=== PATIENT | female | born 1945 | race Caucasian/White ===

== ENCOUNTER 2019-06-07 11:20 | Emergency (ER) | payer MEDICARE, SELFPAY | END 2019-06-07 12:06 | disposition home or self-care (01) | PROVIDERS: Emergency Provider Emergency Medicine; Family Provider Nurse Practitioner Family; Visit Provider Emergency Medicine | DX: R20.2 Paresthesia of skin (principal); I10 Essential (primary) hypertension | CPT/HCPCS: 73562; 99281 ==

== ENCOUNTER → 2019-08-17 08:25 | Outpatient (BNVA) | payer MEDICARE, MEDICAID, SELFPAY | PROVIDERS: Family Provider Nurse Practitioner Family; PCP Nurse Practitioner Family; Referring Provider Nurse Practitioner Family; Visit Provider Podiatrist Foot & Ankle Surgery | DX: M79.671 Pain in right foot (principal); M21.41 Flat foot [pes planus] (acquired), right foot | CPT/HCPCS: 73630 ==

== ENCOUNTER 2019-10-16 08:24 | Emergency (ER) | payer MEDICARE, MEDICAID, SELFPAY ==
[2019-10-16 08:35] VITALS: BP 186/95; PULSE 75; RESP 18; O2SAT 96; BMI 32.5
[2019-10-16 08:39] VITALS: PULSE 72; RESP 17; O2SAT 96
--- NOTE | 2019-10-16 08:44 | W.ED.EXTPRO ---
HPI - Extremity Problem General: Chief complaint: Neck Pain/Injury Stated complaint: LEFT SHOULDER PAIN Time Seen by Provider: 10/16/19 08:34 Source: patient Mode of arrival: ambulatory Limitations: no limitations History of Present Illness: HPI Narrative: Patient is a very nice 73-year-old female who presents to ED today with complaints of pain in her left shoulder. Patient states she had a humeral fracture at the end of 2018 in which she was evaluated at the orthopedic clinic for. Patient states she has struggled with pain in her shoulder since that time. She was seen at urgent care recently and told to take Tylenol and apply heat but states these methods are not improving her discomfort. She does have an appointment at orthopedics on 11/04 but is needing something short-term to help with her discomfort. They have also discussed physical therapy recently but because of the COVID restrictions she has not been able to complete this. She is reportedly doing her own therapy at home. MD Complaint: joint paint Onset (ago): week(s) Pain Consistency: intermittent Location: left Radiation: none Exacerbating factors: range of motion Associated symptoms: Reports no associated symptoms; Deny chest pain, fever(s) or rash Review of Systems Const: Denies: fever or chills Card: Denies: chest pain, palpitations, irregular heart rhythm, edema, lightheadedness, syncope, pre-syncope, shortness of breath on exertion or shortness of breath when lying down Resp: Denies: shortness of breath, productive cough or chest congestion GI: Denies: abdominal pain Musc: Reports: neck pain and joint pain; Denies: back pain, extremity pain, extremity swelling or joint swelling Skin/Breast: Denies: rash Neuro: Denies: headache, numbness in extremities, weakness in extremities or changes in sensation [facility] PFSH: Medical History (Updated 10/16/19 @ 08:46 by DIGNA Rm) GERD (gastroesophageal reflux disease) Hypertension Surgical History (Updated 08/17/19 @ 12:38 by Inderjit Hill DPM) History of bunionectomy of right great toe Social History (Updated 08/17/19 @ 08:20 by Nicole Ames LPN) Smoking and tobacco status: never smoked Alcohol intake: never Physical Exam Const: COMMON NORMALS: no apparent distress, average body habitus, oriented x3, no limitations, healthy appearing, alert and well nourished HENMT: COMMON NORMALS: normocephalic and head/scalp atraumatic HEAD & SCALP: normocephalic and atraumatic Neck/C-Spine: COMMON NORMALS: full ROM, no lymphadenopathy and no meningeal signs OTHER: TTP R paraspinal musculature Chest: COMMONS NORMALS: inspection of chest normal and palpation of chest normal Resp: COMMON NORMALS: normal respiratory effort and clear to auscultation bilaterally AUSCULTATION: clear to auscultation bilaterally Cardio: COMMON NORMALS: regular rate and regular rhythm RATE: regular rate RHYTHM: regular rhythm Extremity: LEFT UPPER EXTREMITY: Yes shoulder joint (pain with ROM although she does maintain pretty good ROM) Left shoulder joint: Yes neurovascular exam (normal) Neuro: COMMON NORMALS: oriented x3 SENSORIUM/ORIENTATION: Yes alert MENINGEAL SIGNS: Yes no meningeal signs Skin: COMMON NORMALS: no rashes or lesions noted GENERAL SKIN EXAM: no rashes or lesions noted Course Vital Signs: Vital signs: Vital Signs Pulse Rate 68 10/16/19 09:44 Respiratory Rate 17 10/16/19 09:44 Blood Pressure 143/74 10/16/19 09:44 Pulse Oximetry 95 10/16/19 09:44 MDM - Extremity (Nontraumatic) MDM Narrative: Medical decision making narrative: pt given IM muscle relaxers and steroids here; will write for muscle relaxers and small amount of pain meds for home; recommend she keep ortho appointment later this month; can follow up with PCP in the meantime if needed Discharge Plan Discharge Patient Disposition: Home, Self-Care Clinical Impression: Left shoulder pain Qualifiers: Chronicity: chronic Qualified Code(s): M25.512 - Pain in left shoulder Condition: Stable Prescriptions: New cyclobenzaprine 10 mg tablet 10 mg PO TID Qty: 14 RF: 0 tramadol 50 mg tablet 50 mg PO Q6H PRN (Reason: pain) Qty: 14 RF: 0 No Action losartan-hydrochlorothiazide 100-12.5 mg tablet 1 tab PO DAILY RF: 0 Discharge Orders: Discharge Order (Routine); Ordered 10/16/19 Ordered By: Reyna Colin Referrals: Lauren Moe NP [Primary Care Provider] - Activity Restrictions/Additional Instructions: Follow up with primary care or your orthopedic appointment later this month for cotninued shoulder pain. Discharge Date/Time: 10/16/19 09:45 Coding Level of Care Code ED Butadiene Convertor Operator for Corey Hill
[2019-10-16] MEDS: orphenadrine 30 mg/mL Inj 2 mL 60 MG IM (09:16)
[2019-10-16] MEDS: dexamethasone 10 mg/mL INJ 8 MG IM (09:17)
[2019-10-16 09:44] VITALS: BP 143/74; PULSE 68; RESP 17; O2SAT 95
== END 2019-10-16 09:45 | disposition home or self-care (01) ==
PROVIDERS: Emergency Provider Physician Assistant; PCP Nurse Practitioner Family
DX: G89.29 Other chronic pain (principal); M25.512 Pain in left shoulder; I10 Essential (primary) hypertension
CPT/HCPCS: 12345; 96372; 99282; 99283; J1100; J2360

== ENCOUNTER → 2019-11-05 08:46 | Outpatient (BNVA) | payer MEDICARE, MEDICAID, SELFPAY | PROVIDERS: PCP Nurse Practitioner Family; Visit Provider Specialist | DX: S42.212A Unspecified displaced fracture of surgical neck of left humerus, initial encounter for closed fracture (principal); X58.XXXA Exposure to other specified factors, initial encounter | CPT/HCPCS: 73030 ==

== ENCOUNTER 2020-01-21 08:22 | Outpatient (CLI) | payer MEDICARE, MEDICAID, SELFPAY ==
--- NOTE | 2020-01-21 | XR_ITS ---
WS: [id number] Right knee, 3 views, 01/21/2020 Clinical Data: RIGHT ANTERIOR KNEE PAIN Comparison: None. Findings: There is medial joint compartment narrowing. Osteophyte formation of the medial femoral condyle and m edial lateral tibial plateaus can be seen. There are no fractures or dislocations. The patella is int act. The soft tissues are normal. 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
== END 2020-01-21 08:23 | disposition home or self-care (01) ==
LOC: RADWPI 08:27
PROVIDERS: PCP Nurse Practitioner Family; Visit Provider Nurse Practitioner Family
DX: M25.561 Pain in right knee (principal); M25.761 Osteophyte, right knee
CPT/HCPCS: 73562

== ENCOUNTER 2020-06-29 07:25 | Outpatient (CLI) | payer MEDICARE, SELFPAY ==
--- NOTE | 2020-06-29 07:31 | MM_ITS ---
WS: [id number] BILATERAL DIGITAL SCREENING MAMMOGRAPHY WITH CAD CLINICAL INFORMATION: SCREENING HISTORY: Screening mammogram. No current complaints. COMPARISON: October 14, 2017 TECHNIQUE: Bilateral CC and MLO views. FINDINGS: Scattered fibroglandular densities bilaterally. No suspicious focal mass, asymmetry, calcifications, or architectural distortion. No evidence of malignancy. Vascular calcification. MM/[id number] IMPRESSION: BI-RADS: 2-Benign FOLLOW UP: 1 Year Follow-up Recommend return to annual screening mammography.
== END 2020-06-29 07:26 | disposition home or self-care (01) ==
LOC: RADSHAW 07:28
PROVIDERS: PCP Nurse Practitioner Family; Visit Provider Nurse Practitioner Family
DX: Z12.31 Encounter for screening mammogram for malignant neoplasm of breast (principal)
CPT/HCPCS: 77067

== ENCOUNTER 2020-11-04 07:05 | Emergency (ER) | payer MEDICARE, MEDICAID, SELFPAY ==
--- NOTE | 2020-11-04 07:11 | XR_ITS ---
WS: [id number] Exam: XR shoulder LT min 2V* [id number] Date/Time of Exam: 11/04/2020 7:14 AM Reason For Exam: pain There is a healed fracture of the head and neck of the humerus. No acute fracture is seen. No disloca tion. Normal soft tissues. XR/XR shoulder LT min 2V* [id number] IMPRESSION: 1. Healed fracture of the proximal humerus. No acute fracture identified.
--- NOTE | 2020-11-04 07:12 | ED_ITS ---
HPI - General Adult General: Chief complaint: Extremity Injury, Upper Stated complaint: L SHOULDER PAIN Time Seen by Provider: 11/04/20 07:08 History of Present Illness: HPI narrative: 74-year-old female presents emergency room with complaint shoulder pain is actually been a longstanding complaint for she previously had a fracture left proximal humerus. After recovery from the fracture she had limited range of motion and is intermittently had shoulder discomfort. She recalls no recent trauma. Is been to the ER as well as to orthopedics couple of times for this. She has not had any surgical procedures on the shoulder. Does not recall any precipitating events. Onset (ago): year(s) Location: left and upper extremity (shoulder) Radiation: proximal Severity: mild Quality: aching Pain Consistency: intermittent Exacerbating factors: movement Associated symptoms: Deny chest pain, cough, diaphoresis, dyspnea or rash Treatments prior to arrival: none Review of Systems Const: Denies: diaphoresis Card: Denies: chest pain Resp: Denies: dyspnea, productive cough or non-productive cough Skin/Breast: Denies: rash or pruritus PFS ED PFSH: Medical History (Updated 11/04/20 @ 07:25 by Demetri White DO) GERD (gastroesophageal reflux disease) Hypertension Surgical History History of bunionectomy of right great toe Social History Smoking and tobacco status: never smoked Alcohol intake: never Physical Exam Const: COMMON NORMALS: no acute distress GENERAL APPEARANCE: cooperative and comfortable ORIENTATION/CONSCIOUSNESS: Yes awake, Yes oriented to person, Yes oriented to place and Yes oriented to time HENMT: COMMON NORMALS: normocephalic, atraumatic and hearing grossly normal bilaterally HEAD & SCALP: normocephalic and atraumatic Extremity: COMMON NORMALS: normal to inspection, capillary refill normal, no clubbing, cyanosis or edema, no calf tenderness and no pedal edema NARRATIVE EXTREMITY EXAM: Emanation left shoulder there is some pain in the subacromial space no pain at the biceps tendons and not. Patient has limited abduction but actually has really good rotator cuff strength. She can only AB duct to about 90 degrees no significant pain able to hold against active resistance. Sensation normal neurovascularly intact. Neuro: SENSORIUM/ORIENTATION: Yes oriented to person, Yes oriented to place and Yes oriented to time Skin: COMMON NORMALS: no rashes or lesions noted GENERAL SKIN EXAM: no rashes or lesions noted Course Vital Signs: Vital signs: Vital Signs Temperature 97.1 F L 11/04/20 07:15 Pulse Rate 69 11/04/20 07:24 Respiratory Rate 16 11/04/20 07:24 Blood Pressure 159/53 11/04/20 07:24 Pulse Oximetry 97 11/04/20 07:24 MDM - General Adult MDM Narrative: Medical decision making narrative: Patient has arthritic changes in the shoulder and think some of her loss of range of motion is due to the way her proximal humerus fracture healed and also some arthritic issues. She may have some rotator cuff although is difficult to evaluate because of her loss of range of motion from the fracture. Recommend that she follow-up with her primary care doctor or with Ortho she could do another steroid injection or evaluate with a MRI. At this point do not think there is a lot we can add to the emergency room we will start her on some anti-inflammatories to use as needed. Discharge Plan Discharge Patient Disposition: Home Clinical Impression: Shoulder arthralgia Condition: Stable Prescriptions: New diclofenac sodium 75 mg tablet,delayed release (DR/EC) 75 mg PO Q12H PRN (Reason: pain) Qty: 20 RF: 0 No Action fluticasone propionate [Flonase Allergy Relief] 50 mcg/actuation spray,suspension 1 spray INTRANASAL DAILY Qty: 16 RF: 0 losartan-hydrochlorothiazide 100-12.5 mg tablet 1 tab PO DAILY RF: 0 baclofen 5 mg tablet 5 mg PO BID 5 Days Qty: 10 RF: 0 Discharge Orders: Discharge ED (Routine); Ordered 11/04/20 Ordered By: Demetri White Referrals: June Moreno DO [Primary Care Provider] - Discharge Diet: Usual diet Discharge Activity: Increase activity as tolerated Patient Instructions: Opioid Safety Activity Restrictions/Additional Instructions: Follow-up with Ortho or your primary care doctor. One option would be to pursue another shoulder joint injection, another would be to participate in physical therapy. Use prescribed anti-inflammatories as needed. He can discussed potential pursuing advanced imaging with your primary care doctor or orthopedist. Coding Level of Care Code ED Enterprise Cloud Architect for Chg Fwd Exam Expanded Problem Focused
[2020-11-04 07:15] VITALS: BP 177/68; PULSE 84; RESP 18; TEMP 36.2; O2SAT 98; BMI 32.5
[2020-11-04 07:24] VITALS: BP 159/53; PULSE 69; RESP 16; O2SAT 97
== END 2020-11-04 07:32 | disposition home or self-care (01) ==
PROVIDERS: Emergency Provider Family Medicine; PCP Family Medicine
DX: M25.512 Pain in left shoulder (principal); I10 Essential (primary) hypertension
CPT/HCPCS: 73030; 99282

== ENCOUNTER → 2020-12-30 09:07 | Outpatient (BNVA) | payer MEDICARE, SELFPAY | PROVIDERS: PCP Family Medicine; Visit Provider Family Medicine | DX: I10 Essential (primary) hypertension (principal) | CPT/HCPCS: 80053; 80061; 82043; 85025 ==

== ENCOUNTER → 2021-03-23 08:25 | Outpatient (BNVA) | payer MEDICARE, SELFPAY | PROVIDERS: PCP Family Medicine; Visit Provider Family Medicine | DX: E53.8 Deficiency of other specified B group vitamins (principal); D53.9 Nutritional anemia, unspecified; Z13.6 Encounter for screening for cardiovascular disorders | CPT/HCPCS: 82607; 82746; 85025 ==

== ENCOUNTER → 2021-04-18 10:13 | Outpatient (BNVA) | payer MEDICARE, SELFPAY | PROVIDERS: PCP Family Medicine; Visit Provider Family Medicine | DX: I10 Essential (primary) hypertension (principal) | CPT/HCPCS: 80048 ==

== ENCOUNTER → 2021-09-13 07:50 | Outpatient (BNVA) | payer MEDICARE, SELFPAY | PROVIDERS: PCP Family Medicine; Visit Provider Otolaryngology | DX: H66.91 Otitis media, unspecified, right ear (principal) | CPT/HCPCS: 99203; 99204 ==

== ENCOUNTER 2021-10-04 07:51 | Outpatient (CLI) | payer MEDICARE, SELFPAY ==
--- NOTE | 2021-10-04 08:18 | MM_ITS ---
WS: [id number] BILATERAL SCREENING 3D TOMOSYNTHESIS DIGITAL MAMMOGRAM WITH CAD HISTORY: SCREENING COMPARISON: 06/29/2020, 10/14/2017 Bilateral CC and MLO views submitted. Computer aided detection analyzed. Breast composition: There are scattered areas of fibroglandular density. No suspicious masses, microc alcifications or architectural distortion. Asymmetric soft tissue in the anterior breast similar to p rior studies. Increasing bilateral breast arterial calcifications. MM/[id number] IMPRESSION: BI-RADS: 2-Benign FOLLOW UP: 1 Year Follow-up
== END 2021-10-04 07:52 | disposition home or self-care (01) ==
LOC: RADSHAW 07:53
PROVIDERS: PCP Family Medicine; Visit Provider Family Medicine
DX: Z12.31 Encounter for screening mammogram for malignant neoplasm of breast (principal)
CPT/HCPCS: 77063; 77067

== ENCOUNTER → 2022-02-26 11:23 | Outpatient (BNVA) | payer MEDICARE, SELFPAY | PROVIDERS: PCP Family Medicine; Visit Provider Family Medicine | DX: I10 Essential (primary) hypertension (principal) | CPT/HCPCS: 80053; 80061; 82043; 85025 ==

== ENCOUNTER 2022-10-15 08:08 | Outpatient (CLI) | payer MEDICARE, SELFPAY ==
--- NOTE | 2022-10-15 08:24 | MM_ITS ---
WS: [id number] BILATERAL SCREENING DIGITAL TOMOSYNTHESIS MAMMOGRAM WITH CAD HISTORY: SCREENING COMPARISON: 10/04/2021, 06/29/2020 Bilateral CC and MLO views with tomosynthesis and synthetic mammography submitted. Computer aided det ection analyzed. Breast composition: The breasts are heterogeneously dense, which may obscure small masses. No suspici ous masses, microcalcifications or architectural distortion. Dense arterial calcifications within eac h breast. Dense fibroglandular tissue anteriorly. MM/[id number] IMPRESSION: BI-RADS: 2-Benign FOLLOW UP: 1 Year Follow-up
== END 2022-10-15 08:09 | disposition home or self-care (01) ==
PROVIDERS: PCP Family Medicine; Visit Provider Family Medicine
DX: Z12.31 Encounter for screening mammogram for malignant neoplasm of breast (principal)
CPT/HCPCS: 77063; 77067

== ENCOUNTER → 2023-02-18 07:43 | Outpatient (BNVA) | payer MEDICARE, SELFPAY | PROVIDERS: PCP Family Medicine; Visit Provider Family Medicine | DX: I10 Essential (primary) hypertension (principal) | CPT/HCPCS: 80053; 80061; 82043; 85025 ==

== ENCOUNTER → 2023-08-15 08:22 | Outpatient (BNVA) | payer MEDICARE, SELFPAY | PROVIDERS: PCP Family Medicine; Visit Provider Family Medicine | DX: I10 Essential (primary) hypertension (principal); Z13.6 Encounter for screening for cardiovascular disorders | CPT/HCPCS: 80053 ==

== ENCOUNTER → 2023-10-07 09:46 | Outpatient (BNVA) | payer MEDICARE, SELFPAY | PROVIDERS: PCP Family Medicine; Visit Provider Family Medicine | DX: R06.09 Other forms of dyspnea (principal) | CPT/HCPCS: 93005 ==

== ENCOUNTER 2023-10-11 06:47 | Outpatient (CLI) | payer MEDICARE, MEDICAID, SELFPAY ==
--- NOTE | 2023-10-11 07:15 | USCV_ITS ---
Flaca Fonseca Age: 77 Gender: F : 1945 Exam Date: 10/11/2023 07:26 Ordering Phys: June Moreno DO Technologist: TRISTAN Exam Location: [facility] – [place] Indication: CARBAJAL BP: 122 / 78 HR: 57 Rhythm: Sinus Technical Quality: Adequate MEASUREMENTS (Male / Female) Normal Values 2D ECHO LV Diastolic Diameter PLAX 4.9 cm 4.2 - 5.9 / 3.9 - 5.3 cm IVS Diastolic Thickness 1.9 cm 0.6 - 1.0 / 0.6 - 0.9 cm IVS Systolic Thickness 2.1 cm LVPW Diastolic Thickness 2.2 cm 0.6 - 1.0 / 0.6 - 0.9 cm LVPW Systolic Thickness 2.6 cm LVOT Diameter 1.9 cm LV Ejection Fraction 2D Teich 64.8 % LV Ejection Fraction MOD 2C 65.9 % LV Ejection Fraction 2C AL 68.6 % LA Diameter 3.1 cm RA Systolic Volume 4C AL 29.2 ml RA Systolic Volume 4C MOD 28.2 ml LA Sys Volume AL 37.9 cm cubed LA Sys Volume Index AL 18.9 cm cubed/m squared Aorta at Sinotubular Diameter 3.0 cm IVC Diameter 1.2 cm M-MODE LA Ao Ratio MM 1.0 AV Cusp Separation MM 1.8 cm DOPPLER AV Peak Velocity 262.0 cm/s LVOT Peak Velocity 112.0 cm/s AV Area Cont Eq vti 2.4 cm squared AV Area Cont Eq pk 1.3 cm squared MV Peak Velocity 124.0 cm/s MV Area PHT 2.7 cm squared Mitral E to A Ratio 0.8 TR Peak Velocity 224.0 cm/s TR Peak Gradient 20.1 mmHg TR Mean Velocity 169.0 cm/s TR Mean Gradient 12.9 mmHg TR Velocity Time Integral 68.8 cm TV Peak E Velocity 46.0 cm/s Right Atrial Pressure 3.0 mmHg Pulmonary Artery Systolic Pressu 23.1 mmHg RV Ejection Time 0.3 s FINDINGS Left Ventricle Left ventricle is normal in size. LV systolic function is normal with EF of 60 to 65%. No regional wall motion abnormalities are seen. Grade 1 diastolic dysfunction. Right Ventricle Normal in size and function. Right Atrium Normal in size. Left Atrium Normal size. Mitral Valve Structurally normal mitral valve. Mild mitral regurgitation Aortic Valve Structurally normal aortic valve. No significant stenosis. Mild aortic regurgitation. Tricuspid Valve Mild tricuspid regurgitation. Insufficient TR jet to evaluate RVSP. Pulmonic Valve Mild pulmonic regurgitation. Pericardium Normal Aorta Normal in size IVC Appears to be normal CONCLUSIONS LV systolic function is normal with EF of 60 to 65%. Grade 1 diastolic dysfunction Mild mitral regurgitation. Mild aortic regurgitation. Mild tricuspid regurgitation Mild pulmonic regurgitation No comparison studies are available Jim Sorto MD (Electronically Signed) Final Date: 20 Oct 2023 13:24 S
== END 2023-10-11 06:48 | disposition home or self-care (01) ==
LOC: RAD 06:47
PROVIDERS: PCP Family Medicine; Visit Provider Family Medicine
DX: I08.3 Combined rheumatic disorders of mitral, aortic and tricuspid valves (principal); R06.09 Other forms of dyspnea
CPT/HCPCS: 93306

== ENCOUNTER → 2024-12-16 11:17 | Outpatient (BNVA) | payer MEDICARE, MEDICAID, SELFPAY | DX: I10 Essential (primary) hypertension (principal) | CPT/HCPCS: 80053; 80061 ==

== ENCOUNTER 2024-12-17 13:29 | Outpatient (CLI) | payer MEDICARE, MEDICAID, SELFPAY | END 2024-12-17 13:30 | disposition home or self-care (01) | LOC: SLEEP 13:31 | PROVIDERS: Referring Provider Pediatrics; Visit Provider Internal Medicine Pulmonary Disease | DX: G47.33 Obstructive sleep apnea (adult) (pediatric) (principal); G47.36 Sleep related hypoventilation in conditions classified elsewhere | CPT/HCPCS: G0399 ==